=== PATIENT | female | born 1935 | race Caucasian/White ===

== ENCOUNTER → 2017-02-16 | Outpatient (CLI) | payer OTHER ==
[~2017-02-16] MED LIST: ADVAIR HFA 45MC1 AER; ASPIRIN325 PO; CARDURA2 MG PO; CITALOPRAM HBR40 MG PO; CYMBALTA20 MG PO; GABAPENTIN 100100 MG PO; HORIZANT600 MG PO; HYDROCODONE-AP1 EAC6 PO; LEVOTHYROXIN0.025 MG PO; LEVOTHYROXIN0.075 MG PO; LEVOTHYROXIN0.088 MG PO; LEVOTHYROXINE PO; LIPITOR 20 MG T20 M1 PO; LIPITOR10 MG PO; NAMENDA 10 MG T10 MG PO; NAMENDA XR28 MG PO; NAMZARIC 28 MG1 EACH PO; NEURONTIN 300300 M1 PO; NEURONTIN100 MG PO; TRAMADOL HCL50 MG PO; VENTOLIN HFA 1818 GM INH; VESICARE 5 MG TA5 M1 PO; VITAMIN D1000 UNI1 PO; ZETIA10 MG PO
== END ==
LOC: RAD 09:50
DX: Z12.31 Encounter for screening mammogram for malignant neoplasm of breast (principal)

== ENCOUNTER → 2017-03-27 | Outpatient (CLI) | payer OTHER ==
[~2017-03-27] VITALS: Ht 160 cm; Wt 79.4 kg
--- NOTE | ~2017-03-27 | HPC ---
[facility] [place] [address] PAIN MANAGEMENT CONSULTATION Name: LYN PAGE Room #: REG Ana Laura Shavon.#: [id number] Admission: 03/27/17 Attend Phys: Alin Lee MD Discharge: Date of : 37 Report #: [id number] THIS REPORT FOR: //name// CC: Yves Lee DATE OF SERVICE: 03/27/2017 Followup visit for chronic low back pain with radiculopathy. It has been years since I last saw the patient. She presents today with her fvidwcfp-cd-chx/fulltime caregiver who brings her to appointments when her back pain flares up. She has dementia, but is delightful. She just has a lot of trouble with short term memory. She remembers stories from this summer at [facility] in [place], but when we asked her more specific questions about how her pain was in the last day or two, she really could not come up with a good answer. Her hwddszue-do-xoe says that she is having trouble with pain and it is keep her in bed. She is hopeful that we can provide another epidural injection for her. These always seem to help. She is allergic to LIDOCAINE. In the past, we have used Carbocaine for injection, which has been well tolerated. We do not have Carbocaine in the formulary anymore, so I discussed using bupivacaine, which is not an ____ local anesthetic. Today, she reports that her pain is 0. I am depending on her caregiver to provide information about her ongoing pain on a daily basis. She moves from a sitting to standing position, ambulates without too much difficulty. She has some mild straight leg raising discomfort. Sensation is intact in lower extremities. IMPRESSION AND PLAN: Lumbar radiculopathy, post-laminectomy syndrome. Pain has typically been worse on the left, it is hard to say today. I have elected to repeat the epidural injection in the similar location where we provided injections in the past. Potential benefits and risks discussed, she would like to proceed. PROCEDURE: She was taken to the fluoroscopic suite for the procedure, placed prone, skin prepped with ChloraPrep. Skin was anesthetized with 22-gauge non-coring needle advanced into the epidural space at L4-L5. No blood or CSF was aspirated. No Omnipaque was utilized for the injection because of a ____ allergy to IODINE. I then injected a total of 4 mL of 0.5% lidocaine mixed with 80 mg of triamcinolone. She tolerated the procedure well and was observed for 5 [place] [address] PAIN MANAGEMENT CONSULTATION Name: LYN PAGE Room #: REG MISHA Lloyd#: [id number] Admission: 03/27/17 Attend Phys: Alin Lee MD Discharge: Date of : 37 Report #: [id number] Follow up as needed. By: [id number] Alin Lee MD /clarke
[2017-03-27 14:17] VITALS: BP 152/86
== END | disposition home or self-care (01) ==
LOC: PAIN 07:03
DX: M54.16 Radiculopathy, lumbar region (principal); M96.1 Postlaminectomy syndrome, not elsewhere classified

== ENCOUNTER → 2018-03-05 | Outpatient (CLI) | payer OTHER | LOC: RAD 10:47 | DX: Z12.31 Encounter for screening mammogram for malignant neoplasm of breast (principal) ==

== ENCOUNTER → 2019-03-12 | Outpatient (CLI) | payer OTHER | LOC: RAD 03:14 | DX: Z12.31 Encounter for screening mammogram for malignant neoplasm of breast (principal) ==

== ENCOUNTER → 2020-04-07 | Outpatient (CLI) | payer OTHER | LOC: BC 08:47 | DX: Z12.31 Encounter for screening mammogram for malignant neoplasm of breast (principal); N64.89 Other specified disorders of breast ==

== ENCOUNTER → 2021-04-21 | Outpatient (CLI) | payer OTHER | END | disposition home or self-care (01) | LOC: RAD 09:29 | DX: Z12.31 Encounter for screening mammogram for malignant neoplasm of breast (principal) ==